=== PATIENT | male | born 1950 | race Caucasian/White ===

== ENCOUNTER 2018-10-08 13:12 | Outpatient (CLI) | payer MEDICARE ==
--- NOTE | 2018-10-08 14:29 | XRAY Report ---
Reason: COUGH Procedure Date: 10/08/2018 Accession Number: [id number] / [id number] Procedure: XR - Chest 2 View X-Ray CPT Code: 36762 FULL RESULT: EXAM: CHEST RADIOGRAPHY EXAM DATE: 10/08/2018 01:42 PM. CLINICAL HISTORY: Cough. COMPARISON: 04/29/2016. TECHNIQUE: 2 views. FINDINGS: Lungs/Pleura: No consolidation or vascular congestion. Curvilinear opacity left base compatible with subsegmental atelectasis. No pneumothorax or pleural effusion. Mediastinum: Upper normal heart size. Mildly tortuous aorta. Other: Degenerative changes of the spine and chronic anterior wedging at the thoracolumbar junction. IMPRESSION: 1. Consistent with mild left basilar subsegmental atelectasis. No consolidative pneumonia or heart failure. [facility]
== END 2018-10-08 13:13 | disposition home or self-care (01) ==
LOC: DI 13:12
PROVIDERS: ATTEND Internal Medicine
DX: R05 Cough (principal)
CPT/HCPCS: 71046

== ENCOUNTER 2019-07-02 15:38 | Outpatient (CLI) | payer MEDICARE ==
[2019-07-02 16:29] LABS: PSA FREE 0.9 ng/mL (0.16-2.81)
[2019-07-02 16:30] LABS: PSA TOTAL 6.08 ng/mL (0.000-2.000)
== END 2019-07-02 15:39 | disposition home or self-care (01) ==
LOC: LAB 15:38
PROVIDERS: ATTEND Nurse Practitioner
DX: R35.1 Nocturia (principal)
CPT/HCPCS: 36415; 84153; 84154

== ENCOUNTER 2020-12-11 13:16 | Outpatient (CLI) | payer MEDICARE ==
--- NOTE | 2020-12-11 16:07 | XRAY Report ---
PROCEDURE: Elbow 3 View RT INDICATIONS: RIGHT ELBOW PAIN/HAND TINGLING TECHNIQUE: 4 views of the elbow were acquired. COMPARISON: None FINDINGS: Bones: No fractures or dislocations. No suspicious bony lesions. Soft tissues: No elbow joint effusion. No suspicious soft tissue calcifications. IMPRESSION: Normal right elbow Reviewed by: Kel Mike on 12/11/2020 4:06 PM PDT Approved by: Kel Mike on 12/11/2020 4:06 PM PDT Station ID: [id number]
== END 2020-12-11 23:59 | disposition home or self-care (01) ==
LOC: DI.S 13:16
PROVIDERS: ATTEND Internal Medicine
DX: M25.521 Pain in right elbow (principal); R20.2 Paresthesia of skin

== ENCOUNTER 2021-01-14 10:51 | Outpatient (CLI) | payer MEDICARE ==
--- NOTE | 2021-01-14 15:00 | MRI Report ---
PROCEDURE: Cervical Spine W/O INDICATIONS: CERVICAL RADICULOPATHY TECHNIQUE: Noncontrast sagittal T1 spin echo and T2 fast spin echo, sagittal STIR, foraminal oblique sagittal T2 fast spin echo, and axial gradient echo or T2 fast spin echo through the cervical spine. COMPARISON: None. FINDINGS: Image quality: Excellent. Alignment and Curvature: There is loss of normal cervical lordosis. There is mild grade 1 retrolisth esis of C3 on C4, C4 on C5, C5 on C6, and C6 on C7.. Bone Marrow: Marrow demonstrates normal overall signal. Moderate reactive signal within the end noe william adjacent to the C3-C4, C4-C5, C5-C6, and C6-C7 intervertebral discs. Mild reactive signal within the end but adjacent to the C2-C3 and C7-T1 intervertebral discs. Spinal Cord: Visualized spinal cord has normal size and signal. No cerebellar tonsillar herniation. Paraspinous Soft Tissues: No paravertebral masses. Bilateral thyroid masses are present, largest of which is in the right lobe measuring 27 mm. Prevertebral soft tissues are normal in thickness. C2-C3: Congenital canal stenosis. Mild disc desiccation and diffuse disc bulge. Mild facet and uncov ertebral hypertrophy bilaterally. Moderate canal stenosis. Mild bilateral foraminal stenosis. C3-C4: Congenital canal stenosis. Moderate disc height loss and desiccation. Mild diffuse disc bulg e. Moderate left greater than right facet and uncovertebral hypertrophy. Moderate to severe canal nash nosis. Minimal anterior cord flattening. Moderate right and severe left foraminal stenosis. Left C4 n erve root compression. C4-C5: Congenital canal stenosis. Moderate disc height loss and desiccation. Mild diffuse disc bulge . Moderate facet and uncovertebral hypertrophy bilaterally. Severe canal stenosis. Mild cord flatteni ng. Severe bilateral foraminal stenosis with bilateral C5 nerve root compression. C5-C6: Congenital canal stenosis. Moderate disc height loss and desiccation. Mild diffuse disc bulge . Moderate facet and uncovertebral hypertrophy bilaterally. Severe canal stenosis. Mild cord flatteni ng. Severe bilateral foraminal stenosis with bilateral C6 nerve root compression. C6-C7: Congenital canal stenosis. Moderate disc height loss and desiccation. Mild diffuse disc bulge . Moderate facet and uncovertebral hypertrophy bilaterally. Moderate to severe canal stenosis. Severe bilateral foraminal stenosis with bilateral C7 nerve root compression. C7-T1: Congenital canal stenosis. Mild disc height loss and desiccation. Mild diffuse disc bulge. Mi ld facet and uncovertebral hypertrophy bilaterally. Mild canal stenosis. Severe bilateral foraminal s tenosis with bilateral C8 nerve root compression. IMPRESSION: 1. Bilateral thyroid masses. Initial further assessment with thyroid ultrasound is recommended. 2. Diffuse congenital canal stenosis with superimposed disc and facet disease, as well as uncovertebr al hypertrophy. 3. Multilevel canal stenoses, worst at C3-C4, C4-C5, and C5-C6 where there is associated cord flatten ing. 4. Multilevel foraminal stenoses, worst at C3-C4, C4-C5, C5-C6, C6-C7, and C7-T1 where there is assoc iated intraforaminal nerve root compression. Recommend correlation with conical symptoms to ascertain relevance of these findings. Reviewed by: Moriah Rose MD on 01/14/2021 2:59 PM PDT Approved by: Moriah Rose MD on 01/14/2021 2:59 PM PDT Station ID: [id number]
== END 2021-01-14 10:52 | disposition home or self-care (01) ==
LOC: DI 10:51
PROVIDERS: ATTEND Internal Medicine
DX: M50.11 Cervical disc disorder with radiculopathy, high cervical region (principal); M48.02 Spinal stenosis, cervical region; M47.22 Other spondylosis with radiculopathy, cervical region; E07.9 Disorder of thyroid, unspecified

== ENCOUNTER 2021-07-30 14:39 | Outpatient (CLI) | payer MEDICARE ==
[2021-07-30 20:01] LABS: HCT - HEMATOCRIT 53.4 % (42.0-52.0); HGB - HEMOGLOBIN 17.2 g/dL (14.0-18.0); MEAN CORPUSCULAR HGB CONC 32.2 g/dL (32.0-36.0); MEAN CORPUSCULAR VOLUME 96.4 fL (80.0-94.0); MEAN PLATELET VOLUME 9.7 fL (7.4-11.4); RED BLOOD COUNT 5.54 10^6/uL (4.70-6.10); RED CELL DISTRIBUTION WIDTH 13.2 % (12.0-15.0); WHITE BLOOD COUNT 7.7 x10^3/uL (4.8-10.8)
[2021-07-30 20:33] LABS: ALBUMIN 4.1 g/dL (3.2-5.5); ALBUMIN/GLOBULIN RATIO 1.1 (1.0-2.2); ALKALINE PHOSPHATASE 46 IU/L (42-121); ALT ALANINE AMINOTRANSFERASE 29 IU/L (10-60); AST ASPARTATE AMINOTRANSFERASE 31 IU/L (10-42); BILIRUBIN,TOTAL 0.5 mg/dL (0.2-1.0); BUN - BLOOD UREA NITROGEN 21 mg/dL (6-20); CALCIUM 9.1 mg/dL (8.5-10.3); CARBON DIOXIDE - CO2 30 mmol/L (21-32); CHLORIDE 101 mmol/L (101-111); CHOL/HDL RATIO 5.5 (<5.0); CHOLESTEROL 257 mg/dL; CREATININE 1.1 mg/dL (0.6-1.2); GFR - MDRD 66 (>89); GLUCOSE 127 mg/dL (70-100); HDL CHOLESTEROL 47 mg/dL; LDL CHOLESTEROL,CALCULATED 190 mg/dL; POTASSIUM 4.4 mmol/L (3.5-5.0); PSA FREE 0.98 ng/mL (0.16-2.81); SODIUM 137 mmol/L (135-145); TOTAL PROTEIN 7.8 g/dL (6.7-8.2); TRIGLYCERIDES 98 mg/dL; VLDL CHOLESTEROL 20 mg/dL
[2021-07-30 20:34] LABS: PSA TOTAL 7.88 ng/mL (0.000-2.000)
[2021-07-30 20:38] LABS: THYROID STIMULATING HORMONE 0.84 uIU/mL (0.34-5.60)
== END 2021-07-30 14:40 | disposition home or self-care (01) ==
LOC: LAB.S 14:39
PROVIDERS: ATTEND Internal Medicine
DX: I10 Essential (primary) hypertension (principal); R97.20 Elevated prostate specific antigen [PSA]; E78.5 Hyperlipidemia, unspecified; Z79.899 Other long term (current) drug therapy
CPT/HCPCS: 36415; 80053; 80061; 83721; 84153; 84154; 84443; 85027

== ENCOUNTER 2021-09-19 23:45 | Emergency (ER) | payer MEDICARE ==
[2021-09-20] MEDS ORDERED: SODIUM CHLORIDE 0.9% 1,000 ML IV STA (00:58)
[2021-09-20] MEDS ORDERED: HYDROmorphone 1 MG/ML CARPUJECT IVP STA (00:58)
--- NOTE | 2021-09-20 01:08 | ED Physician Documentation ---
History of Present Illness - Stated complaint Stated Complaint: BUTT PX - Chief complaint Chief Complaint: General - History obtained from History obtained from: Patient - Additonal information Additional information: The patient comes to the emergency department with chief complaint of "my dildo got stuck". The patient states that he and his girlfriend were using a dildo a couple of hours ago when it slipped up inside his rectum. The patient states that it is still vibrating and seems to have gone up higher, and he has not been able to get it to come out. The patient states he feels somewhat bloated and that it is difficult to urinate but otherwise, denies pain. He denies any other complaints at this time. No blood from his rectum. Review of Systems Ten Systems: 10 systems reviewed and negative Constitutional: reports: Reviewed and negative Eyes: reports: Reviewed and negative Ears: reports: Reviewed and negative Nose: reports: Reviewed and negative Throat: reports: Reviewed and negative Cardiac: reports: Reviewed and negative Respiratory: reports: Reviewed and negative GI: reports: Abdominal Pain : reports: Reviewed and negative Skin: reports: Reviewed and negative Musculoskeletal: reports: Reviewed and negative Neurologic: reports: Reviewed and negative Psychiatric: reports: Reviewed and negative Endocrine: reports: Reviewed and negative Immunocompromised: reports: Reviewed and negative PD PAST MEDICAL HISTORY - Present Medications Home Medications: Ambulatory Orders Medication Instructions Recorded Confirmed Atorvastatin [Lipitor] 10 mg PO DAILY 09/20/21 09/20/21 Propranolol HCl 20 mg PO BID 09/20/21 09/20/21 Trazodone HCl 100 mg PO DAILY 09/20/21 09/20/21 clonazePAM [Clonazepam] 09/20/21 - Allergies Allergies/Adverse Reactions: Allergies Allergy/AdvReac Type Severity Reaction Status Date / Time No Known Drug Allergies Allergy Verified 09/19/21 23:59 PD ED PE NORMAL - Vitals Vital signs reviewed: Yes - General General: Alert and oriented X 3, No acute distress, Well developed/nourished, Other (Appears somewhat uncomfortable but no distress) - HEENT HEENT: Atraumatic, PERRL, EOMI, Moist mucous membranes - Neck Neck: Supple, no meningeal sign - Respiratory Respiratory: No respiratory distress - Abdomen Abdomen: Soft, Non distended, Other (Mild diffuse tenderness, no rebound or guarding) - Rectal Rectal: Other (Vibrating foreign bodies palpable with the very tip of my index finger, inserted all the way and, as deeply as it can go. Foreign body is approximately 8 to 10 cm deep in the rectum. 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, Normal speech, Other (Grossly intact) - Psych Psych: Normal mood, Normal affect Results - Vitals Vitals: Vital Signs - 24 hr 09/19/21 09/20/21 23:51 01:45 Temperature 36.3 C L Heart Rate 99 86 Respiratory 12 15 Rate Blood Pressure 169/111 H 148/94 H O2 Saturation 99 100 Oxygen O2 Source Room air - Rads (name of study) 2 view pelvis x-ray Radiology: Final report received, EMP read indepedently, See rad report (Pa rtially metallic foreign body visualized in the rectum.) PD MEDICAL DECISION MAKING - ED course Complexity details: considered differential, d/w patient ED course: I did discuss the case with Dr. Lou'aleksandra Asif, as I was unable to reach high enough to remove the foreign object in the ED. She did state that she would come over to the emergency department, and ultimately, did come and remove the foreign body herself after patient who received Dilaudid and fentanyl. The x-ray had shown no free air and the patient had a benign abdomen otherwise, and I felt he was stable for discharge home. We have discussed that he should not put foreign objects in his rectum anymore. Departure - Departure Disposition: 01 Home, Self Care Clinical Impression: Foreign body in anus and rectum, initial encounter Condition: Stable Instructions: ED Foreign Body Rectal Removed Adlt Comments: The dildo has been removed from your rectum. You will likely have some soreness and may have a little bit of bloody residue. However, this should resolve on its own in the next couple of days. Please do not insert any further foreign objects into your rectum. You may follow-up with your doctor as needed. You have been given sedating medication in the emergency department and should not drive for at least the next 6 hours.
[2021-09-20] MEDS ORDERED: fentaNYL 100 MCG/2 ML VIAL IVP STA ×2 (01:15→01:27)
--- NOTE | 2021-09-20 01:35 | XRAY Report ---
PROCEDURE: Pelvis 3 View INDICATIONS: Rectal FB TECHNIQUE: 2 views of the pelvis acquired. COMPARISON: None. FINDINGS: Bones: No fractures or dislocations. No suspicious bony lesions. Soft tissues: Visualized bowel gas pattern is normal. There is a partially metallic foreign body pr ojecting over the pelvis consistent with patient's of a rectal foreign body. This measures up to appr oximately 19.5 cm in length. No evidence of associated bowel obstruction. IMPRESSION: 1. Partially metallic foreign body demonstrated in the rectum. Reviewed by: Justice Greene MD on 09/20/2021 1:34 AM PDT Approved by: Justice Greene MD on 09/20/2021 1:34 AM PDT Station ID: [id number]
--- NOTE | 2021-09-20 01:39 | CONSULTATION NOTE ---
Surgery Consult - Consult Date Consult Date: 09/20/21 - Chief Complaint Chief Complaint: Retained foreign object - Home Meds/Allergies Home Medications: Patient History Medication Instructions Recorded Confirmed Atorvastatin [Lipitor] 10 mg PO DAILY 09/20/21 09/20/21 Propranolol HCl 20 mg PO BID 09/20/21 09/20/21 Trazodone HCl 100 mg PO DAILY 09/20/21 09/20/21 clonazePAM [Clonazepam] 09/20/21 Allergies/Adverse Reactions: Allergies Allergy/AdvReac Type Severity Reaction Status Date / Time No Known Drug Allergies Allergy Verified 09/19/21 23:59 - Vital Signs Vital Signs: Last Vital Signs Temp 36.3 C L 09/19/21 23:51 Pulse 99 09/19/21 23:51 Resp 12 09/19/21 23:51 BP 169/111 H 09/19/21 23:51 Pulse Ox 99 09/19/21 23:51 - Consultation Note Consultation Note: 71yo man who presented with retained rectal foreign object. He inserted a dildo into anus and has been unable to retrieve it since about 9:30pm. Feeling bloated and uncomfortable, but no abdominal pain. Currently having some difficulty voiding. Attempts by ED team to retrieve have been unsuccessful. Exam: Abdomen soft, non distended, nontender Rectal exam: no external lesions. on MABEL, palpable solid object about 5 inches proximal to anal verge. Pelvic XR: demonstrates large foreign object in pelvis After administering IV dilaudid and positioning patient on side with knees to chest, dildo able to be retrieved manually. A/P: If able to void, DC with instructions to return if development of abdominal pain, fevers, or urinary retention Indra Suh MD
[2021-09-20 01:50] VITALS: BP 148/94
== END 2021-09-20 01:50 | disposition home or self-care (01) ==
LOC: ED 23:45
DX: T18.5XXA Foreign body in anus and rectum, initial encounter (principal); X58.XXXA Exposure to other specified factors, initial encounter
CPT/HCPCS: 72190; 96374; 96375; 99283; J1170